=== PATIENT | female | born 1990 | race Caucasian/White ===

== ENCOUNTER 2021-11-20 07:06 | Emergency (ER) | payer BC, SELFPAY ==
[2021-11-20 07:10] VITALS: BP 117/76; PULSE 94; RESP 16; TEMP 36.7; O2SAT 96; BMI 31.1
--- NOTE | 2021-11-20 07:34 | CRLHL7_ITS ---
For Patients: As a result of the Century Cures Act, medical imaging exams and procedure reports are released immediately into your electronic medical record. You may view this report before your referring provider. If you have questions, please contact your health care provider. Indication: Left flank pain Technique: Volumetric multidetector CT images of the abdomen and pelvis were without the administration of intravenous contrast. Comparison: CT abdomen and pelvis January 14, 2021 Findings: The lung bases are clear. The liver is normal in attenuation without intrahepatic biliary ductal dilatation. There is layering debris within the gallbladder lumen. There is no significant common biliary ductal dilatation or abrupt cut off. The spleen is normal in attenuation and size. 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 The pancreas is normal in attenuation without significant atrophy. The adrenal glands are unremarkable. There is moderate left perinephric stranding with thickening of the right-sided collecting system and urothelium. There is a nonobstructive calculus in the inferior right collecting system. There is no evidence of distal obstructive calculus. There is mild to moderate stool seen throughout the colon. The appendix is unremarkable. There is no significant mesenteric, retroperitoneal, or pelvic sidewall lymph nodes. The aorta is nonaneurysmal. There is no significant atherosclerotic disease appreciated. The solid pelvic viscera are grossly unremarkable. There is no free fluid or free air. The anterior abdominal wall is intact without significant hernias. The lumbar vertebral body heights are grossly maintained with mild multilevel degenerative disc disease. There is no significant spondylolisthesis or displaced fracture. There is moderate facet arthrosis. Impression: Nonspecific right-sided perinephric stranding and questionable thickening of the urothelium which may represent underlying pyelonephritis changes. Nonobstructive calculi are seen within the collecting system. Correlate with history of clinical symptoms and urinalysis. No evidence of left-sided obstructive uropathy. No other acute intra-abdominal abnormality is appreciated. Moderate stool seen throughout the colon Please note that all CT scans at this facility use dose modulation, iterative reconstruction, and/or weight-based dosing when appropriate to reduce radiation dose to as low as reasonably achievable. Dictated by Savage To MD @ 11/20/2021 8:59:40 AM (Electronically Signed)
--- NOTE | 2021-11-20 07:35 | ED_ITS ---
HPI - General Adult General Time Seen by Provider: 07:34 Date Seen: 11/20/21 Chief complaint: Flank Pain Stated complaint: pain on left side to lower back Time Seen by Provider: 11/20/21 07:11 Source: patient History of Present Illness HPI narrative: 31-year-old female who comes in with about a week of left-sided flank pain. Pain is constant, better sitting, worse with movement. She has had some loose stools with this. Occasional nausea. Pain does radiate down into the left lower quadrant. She has taken Tylenol for this. Was seen in the clinic and ultrasound is scheduled but pain has gotten worse and so patient came emergency department. She denies fever chills. No hematuria or dysuria. Related Data Home Medications Medication Instructions Recorded Confirmed bupropion HCl 150 mg tablet,12 hr mg PO 11/20/21 sustained-release citalopram 20 mg tablet mg 11/20/21 hydroxyzine HCl 25 mg tablet mg 11/20/21 Allergies Allergy/AdvReac Type Severity Reaction Status Date / Time acetaminophen [From Vicodin] Allergy Mild anxious Verified 11/20/21 07:21 cefaclor [From Ceclor] Allergy Mild Rash Verified 11/20/21 07:21 hydrocodone [From Vicodin] Allergy Mild anxious Verified 11/20/21 07:21 Review of Systems Status of ROS: Reports: 10 or more systems reviewed and unremarkable except as noted in History and below Exam Const: Vital Signs, click to edit/add: Vital Signs - 24 hr 11/20/21 07:10 Temperature 98.1 F Pulse Rate [Right Radial] 94 Respiratory Rate 16 Blood Pressure [Ri ght Upper Arm] 117/76 Pulse Oximetry 96 Documenting provider has reviewed patient's vital signs: yes Common normals: no apparent distress, oriented x3, alert and well nourished HENMT: Common normals: normocephalic, head/scalp atraumatic, external ears normal and external nose normal Head and scalp: normocephalic and atraumatic Nose: external nose normal External ear: external ears normal Eye: Common normals: PERRL and conjunctivae normal Conjunctiva: conjunctiva(e) normal Pupil: PERRL Neck & C-Spine: Common normals: full ROM, no lymphadenopathy and supple Chest: Common normals: palpation of chest normal Resp: Common normals: normal respiratory effort and clear to auscultation bilaterally Auscultation: clear to auscultation bilaterally Cardio: Common normals: regular rate, regular rhythm and no murmurs Rate: regular rate Rhythm: regular rhythm GI: Common normals: Normal to inspection, nondistended, normoactive bowel sounds present, soft to palpation and non-tender Palpation: soft : Bladder/kidney exam: CVA tenderness on the left Back & Pelvis: Common normals: thoracic and lumbar spine normal to inspection General back: CVA tenderness Extremity: Common normals: normal to inspection, full ROM and no pedal edema Neuro: Common normals: oriented x3, CN's II-XII intact bilaterally and no focal motor deficits Sensorium/orientation: alert Psych: Common normals: mental status grossly normal Skin: Common normals: no rashes or lesions noted General skin exam: no rashes or lesions noted Course Reevaluation(s) Reevaluation #1: Signout to oncoming provider at change of shift Time: 08:00 Vital Signs Vital signs: Initial Vital Signs Temperature 98.1 F 11/20/21 07:10 Temperature Source Temporal Artery Scan 11/20/21 07:10 Pulse Rate 94 11/20/21 07:10 Pulse Rhythm 11/20/21 07:10 Pulse Strength 0+ Absent 11/20/21 07:10 Respiratory Rate 16 11/20/21 07:10 Blood Pressure 117/76 11/20/21 07:10 Blood Pressure Mean 89 11/20/21 07:10 Blood Pressure Position Sitting 11/20/21 07:10 Pulse Oximetry 96 11/20/21 07:10 Oxygen Delivery Method 11/20/21 07:10 Vital Signs Temperature 98.1 F 11/20/21 07:10 Pulse Rate 94 11/20/21 07:10 Respiratory Rate 16 11/20/21 07:10 Blood Pressure 117/76 11/20/21 07:10 Pulse Oximetry 96 11/20/21 07:10 Temperature 98.1 F 11/20/21 07:10 Pulse Rate 94 11/20/21 07:10 Respiratory Rate 16 11/20/21 07:10 Blood Pressure 117/76 11/20/21 07:10 Pulse Oximetry 96 11/20/21 07:10 Medical Decision Making MDM Narrative Medical decision making narrative: differential diagnosis includes but not limited to pyelonephritis, perinephric hematoma, retroperitoneal abscess or hematoma, musculoskeletal pain, colitis, diverticulitis, ureteral stone. Patient presents with about a week of left flank pain. She has a history of kidney stones, not sure if this feels similar. She has left CVA tenderness. Pain does radiate in the left lower qu adrant. Symptoms are most consistent with ureteral stone. Due to recent weight loss surgery, patient cannot take nonsteroidals. Dilaudid IV is ordered. CT scan and labs are ordered. Sign out to oncoming provider at change of shift. Medical Records Medical records reviewed: Yes I reviewed the patient's medical records Lab Data Lab results reviewed: Yes I reviewed the patient's lab results Discharge Plan Discharge Clinical Impression: Acute left flank pain Prescriptions: No Action bupropion HCl 150 mg tablet sustained-release 12 hr PO 0RF Label Comments: TAKE ONE TABLET BY MOUTH TWICE DAILY citalopram 20 mg tablet 0RF Label Comments: TAKE ONE TABLET BY MOUTH EVERY DAY IN THE MORNING. hydroxyzine HCl 25 mg tablet 0RF Follow Up/Referrals: Stephon Arellano MD [Primary Care Provider] -
[2021-11-20 07:49] LABS: Appearance Urine Slightly Cloudy (Clear); Bilirubin Urine Negative (Negative); Blood Urine 3+ (Negative); Color Urine Yellow (Yellow); Glucose Urine Negative (Negative); Ketones Urine Negative (Negative); Leukocyte Esterase Urine 1+ (Negative); Nitrite Urine Negative (Negative); Protein Urine 1+ (Negative)
[2021-11-20 07:52] LABS: Basophils Percent Auto 0.1 % (0.0-3.0); Eosinophils Percent Auto 0.3 % (0.0-7.0); Hematocrit 40.3 % (33.0-51.0); Hemoglobin* 13.2 gm/dL (12.0-16.0); Immature Granulocytes Abs Auto 0.12 K/uL (0.00-0.30); Mean Corpuscular HGB Conc 33 gm/dL (32-36); Mean Corpuscular Hemoglobin 32 pg (26-34); Mean Corpuscular Volume 97 fL (80-100); Monocytes Percent Auto 10.6 % (0.0-11.0); Neutrophils Percent Auto 77.2 % (42.0-72.0); Platelet Count* 481 K/uL (140-440); RDW Coefficient of Variation % 13.4 % (11.5-15.5); Red Blood Count 4.16 m/uL (4.00-5.20); White Blood Count* 14.35 K/uL (4.50-11.00)
[2021-11-20 07:58] LABS: Slide Review Reflex No
[2021-11-20 07:58] LABS: Bacteria Urine Moderate; Squamous Epithelial Cell Urine Moderate (None-Few)
[2021-11-20 07:59] LABS: Mucus Urine Few
[2021-11-20 08:14] LABS: Chloride* 106 mmol/L (96-114); Potassium* 3.2 mmol/L (3.6-5.1); Sodium* 138 mmol/L (135-149)
[2021-11-20] MEDS: HYDROmorphone 0.5 mg/0.5 ml inj IVP (08:16)
[2021-11-20] MEDS: ONDANSETRON 2 MG/ML inj 4 MG IVP (08:16)
[2021-11-20 08:17] LABS: Blood Urea Nitrogen* 12 mg/dL (5-24); Carbon Dioxide* 28 mmol/L (20-32); Creatinine* 0.7 mg/dL (0.5-1.5); Est. Creatinine Clearance* 102.86; Estimated Glomerular Filt Rate 117.04
[2021-11-20 08:18] LABS: Calcium* 8.6 mg/dL (8.4-10.6); Glucose* 99 mg/dL (60-115)
[2021-11-20 08:32] VITALS: PULSE 82; RESP 16; O2SAT 98
[2021-11-20] MEDS: PIPERACILLIN/TAZOBACTAM 3.375 GM in 0.9 % SODIUM CHLORIDE Mini-bag 100 ML IVPB (09:32)
[2021-11-20 10:35] VITALS: PULSE 67; RESP 16; O2SAT 96
== END 2021-11-20 10:37 | disposition home or self-care (01) ==
PROVIDERS: Family Medicine; Emergency Provider Family Medicine; PCP Family Medicine
DX: R10.32 Left lower quadrant pain (principal)
CPT/HCPCS: 36415; 74176; 80048; 81001; 85025; 87086; 87186; 96365; 96375; 99284; 99285; J1170; J2405; J2543

== ENCOUNTER 2022-01-22 10:58 | Emergency (ER) | payer BC, SELFPAY ==
[2022-01-22 11:39] VITALS: BP 99/68; PULSE 88; RESP 18; TEMP 37.3; O2SAT 98; BMI 30.6
--- NOTE | 2022-01-22 11:42 | ED_ITS ---
HPI - Abdominal Pain General Chief Complaint: Flank Pain Stated Complaint: Pain on both sides Time Seen by Provider: 01/22/22 11:31 History of Present Illness HPI narrative: 31-year-old woman presenting to the emergency department with complaint bilateral low back/flank area pain. She is having some frequency as well. No hematuria is noted. Does have an underlying history of nephrolithiasis, cholelithiasis and urinary tract infections. Seen with flank pain in early November here at this department. CT imaging showed nonobstructive uropathy, by my review a large stone in the right lower collecting system another much smaller appears in the upper collecting system also on the right, and what appeared to be perinephric stranding. Was treated for a urinary tract infection with Bactrim. Urine culture ultimately grew nothing of significance. 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 Accompanied by nausea. She has not been vomiting. Has been taking Tylenol for the pain which admittedly does help somewhat. Does not take NSAIDs given history of gastric bypass. She has not had a fever. Pain is described as a deep an annoying ache. She has a hand initially at the low abdomen on the right but it sounds as though more of her discomfort is actually concentrated on the left side. Related Data Home Medications Medication Instructions Recorded Confirmed bupropion HCl 150 mg tablet,12 hr mg PO 11/20/21 sustained-release citalopram 20 mg tablet mg 11/20/21 hydroxyzine HCl 25 mg tablet mg 11/20/21 Previous Rx's Medication Instructions Recorded sulfamethoxazole 800 1 tab PO BID 7 days #14 tabs 11/20/21 mg-trimethoprim 160 mg tablet Allergies Allergy/AdvReac Type Severity Reaction Status Date / Time acetaminophen [From Vicodin] Allergy Mild anxious Verified 01/22/22 11:44 cefaclor [From Ceclor] Allergy Mild Rash Verified 01/22/22 11:44 hydrocodone [From Vicodin] Allergy Mild anxious Verified 01/22/22 11:44 Review of Systems Status of ROS Reports: 10 or more systems reviewed and unremarkable except as noted in History and below [facility] Medical History Anxiety Flank pain Gall bladder stones Gastritis Gout Heart palpitations Postprandial abdominal pain in right upper quadrant SVT (supraventricular tachycardia) Urolithiasis Social History Smoking Status: Former smoker What tobacco products do you use: cigarettes Smoking quit date/years: <= 15 years ago Second hand tobacco smoke exposure: Yes How often do you have a drink containing alcohol: monthly or less How often do you have six or more drinks on one occasion: Less than monthly AUDIT-C Alcohol total score: 2 Non-prescribed substance use: denies use service: No Exam Narrative: Exam Narrative: Pleasant. Seems mildly uncomfortable. Transitions without significant difficulty. Right hand resting on her right side abdomen. We will extremities are difficulty. Cranial nerves 2-12 intact Skin is warm and dry. No edema well perfused peripherally. She has large shahid tattoo on right side of her neck. Lungs are clear. Breathing easily. Abdomen is soft overweight and with bilateral flank pain to percussion more sites on the left than the right. Abdomen is soft. No masses appreciated. Not particularly tender to palpation though maybe a little bit of tenderness in the low left mid abdomen. Normoactive bowel sounds Const: Vital Signs, click to edit/add: Vital Signs - 24 hr 01/22/22 11:39 Temperature 99.2 F Pulse Rate [Right Pulse Oximeter] 88 Respiratory Rate 18 Blood Pressure [Ri ght Upper Arm] 99/68 Pulse Oximetry 98 Oxygen Delivery Me thod Room Air Documenting provider has reviewed patient's vital signs: yes Course Course Hospital Course: She would like nothing for pain beyond acetaminophen. This is given along with Zofran. Pending urinalysis to proceed further. Vital Signs Vital signs: Initial Vital Signs Temperature 99.2 F 01/22/22 11:39 Temperature Source Temporal Artery Scan 01/22/22 11:39 Pulse Rate 88 01/22/22 11:39 Pulse Rhythm 01/22/22 11:39 Respiratory Rate 18 01/22/22 11:39 Blood Pressure 99/68 01/22/22 11:39 Blood Pressure Mean 78 01/22/22 11:39 Blood Pressure Position Sitting 01/22/22 11:39 Pulse Oximetry 98 01/22/22 11:39 Oxygen Delivery Method 01/22/22 11:39 Vital Signs Temperature 99.2 F 01/22/22 11:39 Pulse Rate 88 01/22/22 11:39 Respiratory Rate 18 01/22/22 11:39 Blood Pressure 99/68 01/22/22 11:39 Pulse Oximetry 98 01/22/22 11:39 Oxygen Delivery Method 01/22/22 11:39 Temperature 99.2 F 01/22/22 11:39 Pulse Rate 88 01/22/22 11:39 Respiratory Rate 18 01/22/22 11:39 Blood Pressure 99/68 01/22/22 11:39 Pulse Oximetry 98 01/22/22 11:39 Oxygen Delivery Method 01/22/22 11:39 MDM - Abdominal Pain MDM Narrative Medical decision making narrative: Will assess 1st for urinary tract infection. Given the size of what would be potentially a surgical problem given the size of the right side stone partic ularly if associated with urinary tract infection, perhaps a KUB would be useful. I did review prior CT imaging. See above. Again though discomfort seems to be more left-sided While not excluded, I do not see evidence of a stone on kub. UA is positive -- consistent with infection Medical Records Attestation: I reviewed the patient's medical records. Lab Data Labs: Lab Results 01/22/22 Range/Units 11:56 Urine Color Yellow (Yellow) Urine Appearance Clear (Clear) Urine pH 6.0 (5.0-8.5) Ur Specific [place] 1.020 (1.000-1.030) Urine Protein 2+ A (Negative) Urine Glucose (UA) Negative (Negative) Urine Ketones Negative (Negative) Urine Blood 1+ A (Negative) Urine Nitrite Negative (Negative) Urine Bilirubin Negative (Negative) Urine Urobilinogen 1.0 (0.2-1.0) Ur Leukocyte Esterase 1+ A (Negative) Urine RBC 0-2 (0-2) Urine WBC 50-100 A (0-5) Ur Squamous Epith Cells Few (None-Few) Urine Bacteria Few A (None) Discharge Plan Discharge Clinical Impression: UTI (urinary tract infection) Patient Disposition: Home w/ Parent or Adult Condition: Stable Additional Instructions: Stay hydrated with unsweetened/unsugared liquids. ideally water. Return for marked increase in pain, pain lasting more than 4-5 days, associated fever, repeated vomiting Urine culture will be pending here. I will call you if radiology over-read requires conversation. Cephalexin from [facility] Prescriptions: No Action bupropion HCl 150 mg tablet sustained-release 12 hr PO Label Comments: TAKE ONE TABLET BY MOUTH TWICE DAILY citalopram 20 mg tablet Label Comments: TAKE ONE TABLET BY MOUTH EVERY DAY IN THE MORNING. hydroxyzine HCl 25 mg tablet sulfamethoxazole-trimethoprim 800-160 mg tablet 1 tab PO BID 7 Days Qty: 14 0RF Follow Up/Referrals: Stephon Arellano MD [Primary Care Provider] - Stand Alone Forms: [employer] Info Instructions
[2022-01-22] MEDS: ONDANSETRON ODT 4 MG TAB PO (12:09)
[2022-01-22] MEDS: ACETAMINOPHEN 500 MG TABLET 1000 MG PO (12:09)
--- NOTE | 2022-01-22 12:09 | CRLHL7_ITS ---
For Patients: As a result of the Century Cures Act, medical imaging exams and procedure reports are released immediately into your electronic medical record. You may view this report before your referring provider. If you have questions, please contact your health care provider. INDICATION: Right sided stone location TECHNIQUE: Abdomen/Pelvis radiograph 2 views COMPARISON: CT 11/20/2021 FINDINGS: Bowel: The bowel gas pattern is normal without evidence of bowel obstruction. The epigastrium is excluded and cannot be evaluated. Soft tissue: No evidence of pneumoperitoneum present. Several left pelvic phleboliths are noted without interval change. The 6 mm right renal stone seen on prior exam is not visualized by radiography. Evaluation of renal stones is limited by overlying bowel gas. Bone: Unremarkable for age. IMPRESSION: 1. The 6 mm right renal stone seen on prior exam is not visualized by radiography. Dictated by Doroteo Mejias MD @ 01/22/2022 1:12:24 PM Dictated by: Doroteo Mejias MD @ 01/22/2022 13:12:29 (Electronically Signed)
[2022-01-22 12:22] LABS: Appearance Urine Clear (Clear); Bilirubin Urine Negative (Negative); Blood Urine 1+ (Negative); Color Urine Yellow (Yellow); Glucose Urine Negative (Negative); Ketones Urine Negative (Negative); Leukocyte Esterase Urine 1+ (Negative); Nitrite Urine Negative (Negative); Protein Urine 2+ (Negative)
[2022-01-22 12:44] LABS: Bacteria Urine Few; RBC Urine 0-2 (0-2); Squamous Epithelial Cell Urine Few (None-Few); WBC Urine 50-100 (0-5)
== END 2022-01-22 13:23 | disposition home or self-care (01) ==
PROVIDERS: Emergency Provider Family Medicine; PCP Family Medicine
DX: N39.0 Urinary tract infection, site not specified (principal); B96.20 Unspecified Escherichia coli [E. coli] as the cause of diseases classified elsewhere
CPT/HCPCS: 74018; 81001; 87086; 87186; 99283; A9270

== ENCOUNTER 2022-09-25 11:23 | Emergency (ER) | payer SELFPAY ==
[2022-09-25 12:06] VITALS: BP 104/69; PULSE 59; RESP 18; TEMP 15; O2SAT 99; BMI 28.8
--- NOTE | 2022-09-25 12:14 | ED_ITS ---
HPI - Wound/Laceration General Time Seen by Provider: 12:14 Date Seen: 09/25/22 Chief Complaint: Laceration/Wound Stated Complaint: LT index finger - WC Time Seen by Provider: 09/25/22 12:11 Source: patient, RN notes reviewed and old records reviewed Mode of arrival: ambulatory Limitations: no limitations History of Present Illness HPI narrative: Patient is a 32-year-old female with unknown tetanus who comes to the emergency room for evaluation regarding laceration to the left index finger. 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 She is not sure she needs stitches. She is able to move her finger without difficulty. No history of diabetes or difficult to heal infections. She has not taken any medication for discomfort. Related Data Home Medications Medication Instructions Recorded Confirmed bupropion HCl 150 mg tablet,12 hr mg PO 11/20/21 sustained-release citalopram 20 mg tablet mg 11/20/21 hydroxyzine HCl 25 mg tablet mg 11/20/21 Previous Rx's Medication Instructions Recorded sulfamethoxazole 800 1 tab PO BID 7 days #14 tabs 11/20/21 mg-trimethoprim 160 mg tablet Allergies Allergy/AdvReac Type Severity Reaction Status Date / Time cefaclor [From Ceclor] Allergy Mild Rash Verified 01/22/22 11:44 hydrocodone [From Vicodin] Allergy Mild anxious Verified 01/22/22 11:44 Review of Systems Status of ROS: Reports: 6 or more systems reviewed and unremarkable except as noted in History and below [facility] Medical History Gall bladder stones ?K80.20 - Calculus of gallbladder without cholecystitis without obstruction (ICD-10) Urolithiasis ?N20.9 - Urinary calculus, unspecified (ICD-10) Gastritis ?K29.70 - Gastritis, unspecified, without bleeding (ICD-10) Flank pain ?R10.9 - Unspecified abdominal pain (ICD-10) Gout ?M10.9 - Gout, unspecified (ICD-10) Postprandial abdominal pain in right upper quadrant ?R10.11 - Right upper quadrant pain (ICD-10) Anxiety ?F41.9 - Anxiety disorder, unspecified (ICD-10) Heart palpitations ?R00.2 - Palpitations (ICD-10) SVT (supraventricular tachycardia) ?I47.1 - Supraventricular tachycardia (ICD-10) Social History (Updated 01/29/22 @ 10:48 by Sebastien Moore MD) Smoking Status: Former smoker What tobacco products do you use: cigarettes Smoking quit date/years: <= 15 years ago Second hand tobacco smoke exposure: Yes How often do you have a drink containing alcohol: monthly or less How often do you have six or more drinks on one occasion: Less than monthly AUDIT-C Alcohol total score: 2 Non-prescribed substance use: denies use service: No Exam Narrative: Exam Narrative: Alert and oriented. Examination of the left index finger shows a 2 0.3 cm superficial laceration through the dermis and epidermis. Located on the ventral lateral surface of the distal phalanx 2nd finger. I do not note that it compromises subcutaneous tissue. No foreign bodies are noted. We will soak the finger and then applied Dermabond. Const: Vital Signs, click to edit/add: Vital Signs - 24 hr 09/25/22 12:06 Temperature 59 F L Pulse Rate [Right Pulse Oximeter] 59 L Respiratory Rate 18 Blood Pressure [Ri ght Upper Arm] 104/69 Pulse Oximetry 99 Oxygen Delivery Me thod Room Air Documenting provider has reviewed patient's vital signs: yes Course Course Hospital Course: Wound is soaked in Hibiclens. No foreign bodies are noted. Dermabond placed in a double layer with good wound closure. Patient tolerated procedure well. Vital Signs Vital signs: Initial Vital Signs Temperature 59 F L 09/25/22 12:06 Temperature Source Temporal Artery Scan 09/25/22 12:06 Pulse Rate 59 L 09/25/22 12:06 Respiratory Rate 18 09/25/22 12:06 Blood Pressure 104/69 09/25/22 12:06 Blood Pressure Mean 80 09/25/22 12:06 Blood Pressure Position Sitting 09/25/22 12:06 Pulse Oximetry 99 09/25/22 12:06 Oxygen Delivery Method Room Air 09/25/22 12:06 Vital Signs Temperature 59 F L 09/25/22 12:06 Pulse Rate 59 L 09/25/22 12:06 Respiratory Rate 18 09/25/22 12:06 Blood Pressure 104/69 09/25/22 12:06 Pulse Oximetry 99 09/25/22 12:06 Oxygen Delivery Method Room Air 09/25/22 12:06 Temperature 59 F L 09/25/22 12:06 Pulse Rate 59 L 09/25/22 12:06 Respiratory Rate 18 09/25/22 12:06 Blood Pressure 104/69 09/25/22 12:06 Pulse Oximetry 99 09/25/22 12:06 Oxygen Delivery Method Room Air 09/25/22 12:06 MDM - Wound/Laceration MDM Narrative Medical decision making narrative: 1. Finger laceration repair-Dermabond use. Recommend monitoring for signs and symptoms of infection and seeking medical attention for fever, increasing redness. Tylenol or ibuprofen may be used for discomfort. Tetanus is confirmed as up-to-date. 2. Disposition-home at this time. Return as needed. Note given for off work today. Medical Records Attestation: I reviewed the patient's medical records. Discharge Plan Discharge Clinical Impression: Laceration Patient Disposition: Home, Self-Care Condition: Improved Additional Instructions: Monitor for infection. Seek medical attention for fever, increasing redness, swelling. Tylenol or ibuprofen may be used for discomfort. Prescriptions: No Action bupropion HCl 150 mg tablet sustained-release 12 hr PO Patient Comments: TAKE ONE TABLET BY MOUTH TWICE DAILY citalopram 20 mg tablet Patient Comments: TAKE ONE TABLET BY MOUTH EVERY DAY IN THE MORNING. hydroxyzine HCl 25 mg tablet sulfamethoxazole-trimethoprim 800-160 mg tablet 1 tab PO BID 7 Days Qty: 14 0RF Follow Up/Referrals: Stephon Arellano MD [Primary Care Provider] - Stand Alone Forms[facility]
== END 2022-09-25 12:55 | disposition home or self-care (01) ==
PROVIDERS: Emergency Provider Family Medicine; PCP Family Medicine
DX: S61.211A Laceration without foreign body of left index finger without damage to nail, initial encounter (principal); W27.2XXA Contact with scissors, initial encounter
CPT/HCPCS: 12001; 99282

== ENCOUNTER 2023-01-20 18:18 | Emergency (ER) | payer BC, SELFPAY ==
[2023-01-20 18:38] VITALS: BP 124/75; PULSE 91; RESP 16; TEMP 36.3; O2SAT 99; BMI 28.3
--- NOTE | 2023-01-20 19:45 | CRLHL7_ITS ---
For Patients: As a result of the Century Cures Act, medical imaging exams and procedure reports are released immediately into your electronic medical record. You may view this report before your referring provider. If you have questions, please contact your health care provider. INDICATION: Right lower quadrant pain. TECHNIQUE: CT abdomen and pelvis acquired with 81 cc Isovue 370 IV contrast. COMPARISON: 11/20/2021. FINDINGS: Lower chest: Right basilar calcified granulomas with adjacent clustered nodularity, unchanged since 01/14/2021. Liver: Unremarkable. Normal in size and attenuation. No suspicious masses. Gallbladder and bile ducts: Dependent hyperdensity in the gallbladder lumen, representing layering sludge and/or stones. No inflammation. No biliary ductal dilatation. Spleen: Unremarkable. Normal in size. No masses. Adrenal glands: Unremarkable. No nodules. Pancreas: Unremarkable. No mass or inflammation. Kidneys: Nonobstructive 5 mm calculus in the right inferior pole. No hydronephrosis. GI tract: Postsurgical changes of gastric bypass. No evidence of obstruction. Large colonic stool load. Appendix is not well visualized, however there is no evidence of right lower quadrant inflammatory stranding. Lymph nodes: No lymphadenopathy. Vasculature: Unremarkable. Omentum/Peritoneum/Abdominal Wall: Unremarkable. No free air or significant free fluid. Pelvis: Unremarkable. Bones: Unremarkable for age. IMPRESSION: 1. No acute abdominal or pelvic abnormality. 2. Right nonobstructive nephrolithiasis. 3. Cholelithiasis. 4. Large colonic stool load. Please note that all CT scans at this facility use dose modulation, iterative reconstruction, and/or weight-based dosing when appropriate to reduce radiation dose to as low as reasonably achievable. Dictated by Otis Winchester MD @ 01/20/2023 10:20:21 PM (Electronically Signed)
--- NOTE | 2023-01-20 19:46 | ED_ITS ---
HPI - General Adult General Date Seen: 01/20/23 Chief complaint: Abdominal Pain Stated complaint: Back/stomach numb, R side in pain Time Seen by Provider: 01/20/23 19:37 Source: patient Mode of arrival: ambulatory Limitations: no limitations History of Present Illness HPI narrative: Patient is a 32-year-old female who comes in with abdominal pain. This started in her right mid back and radiates around to the front. She has had no fevers or chills. No hematuria. She does have a history of kidney stones. No dysuria, urgency, frequency. She has some constipation but no diarrhea. Pain began yesterday after eating a pork chop. She has had a previous gastric bypass. She still has her appendix and gallbladder. Related Data Home Medications Medication Instructions Recorded Confirmed cyclobenzaprine 5 mg tablet 5 mg PO 3XD PRN 12/08/22 12/08/22 prednisone 10 mg tablet 10 mg PO BID 12/08/22 12/08/22 Allergies Allergy/AdvReac Type Severity Reaction Status Date / Time cefaclor [From Ceclor] Allergy Mild Rash Verified 12/08/22 16:05 hydrocodone [From Vicodin] Allergy Mild anxious Verified 12/08/22 16:05 Review of Systems Narrative: Review of systems is outlined above otherwise noted to be negative. [facility] Medical History Gall bladder stones ?K80.20 - Calculus of gallbladder without cholecystitis without obstruction (ICD-10) Urolithiasis ?N20.9 - Urinary calculus, unspecified (ICD-10) Gastritis ?K29.70 - Gastritis, unspecified, without bleeding (ICD-10) Flank pain ?R10.9 - Unspecified abdominal pain (ICD-10) Gout ?M10.9 - Gout, unspecified (ICD-10) Postprandial abdominal pain in right upper quadrant ?R10.11 - Right upper quadrant pain (ICD-10) Anxiety ?F41.9 - Anxiety disorder, unspecified (ICD-10) Heart palpitations ?R00.2 - Palpitations (ICD-10) SVT (supraventricular tachycardia) ?I47.1 - Supraventricular tachycardia (ICD-10) Social History (Updated 01/29/22 @ 10:48 by Sebastien Moore MD) Smoking Status: Former smoker What tobacco products do you use: cigarettes Smoking quit date/years: <= 15 years ago Second hand tobacco smoke exposure: Yes How often do you have a drink containing alcohol: monthly or less How often do you have six or more drinks on one occasion: Less than monthly AUDIT-C Alcohol total score: 2 Non-prescribed substance use: denies use service: No Exam Narrative: Exam Narrative: Vitals noted. HEENT: Conjunctiva clear. Tympanic membranes are pearly white bilaterally. Posterior pharynx is clear without erythema or exudate. Neck is supple without adenopathy. Lungs: Clear to auscultation in all medrano. No wheezes, rales, rhonchi. Heart: Regular rate and rhythm without murmur. Abdomen: She has some mild tenderness in the right upper and right lower quadrant. No guarding, rigidity, rebound. Bowel sounds are normal. No palpable mass. Extremities: No cyanosis or edema. Good distal pulses. Skin: No abnormalities noted of the exposed skin. Neurologic: Awake, alert, fully oriented. Neurologic exam is nonfocal. Const: Vital Signs, click to edit/add: Vital Signs - 24 hr 01/20/23 18:38 01/20/23 20:57 Temperature 97.3 F L Pulse Rate [Right Pulse Oximeter] 91 73 Respiratory Rate 16 Blood Pressure [Ri ght Upper Arm] 124/75 117/75 Pulse Oximetry 99 98 Oxygen Delivery Me thod Room Air Room Air Course Course Hospital Course: Patient was seen and examined. Labs and a CT of her abdomen and pelvis are ordered. She denies a need for pain medication. Reevaluation(s) Reevaluation #1: CBC, BMP, LFTs, lipase are all normal. Urinalysis is normal. CT of the abdomen and pelvis shows gallstones but no sign of acute cholecystitis. Appendix is normal. She has a large amount of colonic stool. No point of obstruction. Vital Signs Vital signs: Initial Vital Signs Temperature 97.3 F L 01/20/23 18:38 Temperature Source Temporal Artery Scan 01/20/23 18:38 Pulse Rate 91 01/20/23 18:38 Pulse Rhythm Regular 01/20/23 18:38 Respiratory Rate 16 01/20/23 18:38 Blood Pressure 124/75 01/20/23 18:38 Blood Pressure Mean 91 01/20/23 18:38 Blood Pressure Position Sitting 01/20/23 18:38 Pulse Oximetry 99 01/20/23 18:38 Oxygen Delivery Method Room Air 01/20/23 18:38 Vital Signs Temperature 97.3 F L 01/20/23 18:38 Pulse Rate 91 01/20/23 18:38 Respiratory Rate 16 01/20/23 18:38 Blood Pressure 124/75 01/20/23 18:38 Pulse Oximetry 99 01/20/23 18:38 Oxygen Delivery Method Room Air 01/20/23 18:38 Temperature 97.3 F L 01/20/23 18:38 Pulse Rate 73 01/20/23 20:57 Respiratory Rate 16 01/20/23 18:38 Blood Pressure 117/75 01/20/23 20:57 Pulse Oximetry 98 01/20/23 20:57 Oxygen Delivery Method Room Air 01/20/23 20:57 Medical Decision Making MDM Narrative Medical decision making narrative: I suspect her pain is related to her gallbladder. We discussed following a fat- free diet until she has a chance to have a right upper quadrant ultrasound and surgical consult done. She denies a need for pain medication. Lab Data Labs: Lab Results 01/20/23 01/20/23 Range/Units 19:50 19:55 WBC 6.72 (4.50-11.00) K/uL RBC 3.75 L (4.00-5.20) m/uL Hgb 12.0 (12.0-16.0) gm/dL Hct 37.2 (33.0-51.0) % MCV 99 (80-100) fL MCH 32 (26-34) pg MCHC 32 (32-36) gm/dL RDW Coeff of Colleen 12.4 (11.5-15.5) % Plt Count 288 (140-440) K/uL Neut % (Auto) 57.0 (42.0-72.0) % Lymph % (Auto) 33.2 (20-44) % [place] % (Auto) 8.5 (0.0-11.0) % Eos % (Auto) 0.9 (0.0-7.0) % Baso % (Auto) 0.3 (0.0-3.0) % Neut # (Auto) 3.83 (1.7-7.0) K/uL Lymph # (Auto) 2.23 (0.90-2.90) K/uL [place] # (Auto) 0.60 (0.00-0.90) K/UL Eos # (Auto) 0.06 (0.00-0.50) K/uL Baso # (Auto) 0.02 (0.00-0.30) K/uL Abs Immat Gran (auto) 0.01 (0.00-0.30) K/uL Imm/Tot Granulo (auto) 0.1 % Sodium 137 (135-149) mmol/L Potassium 4.1 (3.6-5.1) mmol/L Chloride 102 (96-114) mmol/L Carbon Dioxide 31 (20-32) mmol/L Anion Gap 4 L (7-15) mEq/L BUN 19 (5-24) mg/dL Creatinine 0.8 (0.5-1.5) mg/dL Estimated Creat Clear 85.56 Estimated GFR 99 ml/min Glucose 65 (60-115) mg/dL Calcium 8.9 (8.4-10.6) mg/dL Total Bilirubin 0.5 (0.1-1.5) mg/dL Direct Bilirubin 0.0 (0.0-0.5) mg/dL AST 24 (12-35) U/L ALT 23 (4-35) U/L Alkaline Phosphatase 46 (40-150) U/L Total Protein 6.5 (6.0-8.3) g/dL Albumin 3.9 (3.3-5.0) g/dL Lipase 45 (23-300) U/L Urine Color Yellow (Yellow) Urine Appearance Slightly Cloudy A (Clear) Urine pH 6.0 (5.0-8.5) Ur Specific [place] 1.020 (1.000-1.030) Urine Protein Negative (Negative) Urine Glucose (UA) Negative (Negative) Urine Ketones Negative (Negative) Urine Blood Negative (Negative) Urine Nitrite Negative (Negative) Urine Bilirubin Negative (Negative) Urine Urobilinogen 1.0 (0.2-1.0) Ur Leukocyte Esterase Negative (Negative) Urine RBC 0-2 (0-2) Urine WBC 0-2 (0-5) Ur Squamous Epith Cells Few (None-Few) Urine Bacteria None (None) Discharge Plan Discharge Clinical Impression: Cholelithiasis, Biliary colic Patient Disposition: Home, Self-Care Condition: Improved Additional Instructions: Follow a fat-free diet. Use Tylenol for pain. Take MiraLax daily to help with the constipation issue. Follow-up with Dr. Arellano to discuss the right upper quadrant ultrasound and surgical referral. Return to the emergency department for refractory pain. Prescriptions: No Action cyclobenzaprine 5 mg tablet 5 mg PO 3XD PRN prednisone 10 mg tablet 10 mg PO BID Follow Up/Referrals: Stephon Arellano MD [Primary Care Provider] - Stand Alone Forms: [employer] Info Instructions
[2023-01-20 19:59] LABS: Appearance Urine Slightly Cloudy (Clear); Bilirubin Urine Negative (Negative); Blood Urine Negative (Negative); Color Urine Yellow (Yellow); Glucose Urine Negative (Negative); Ketones Urine Negative (Negative); Leukocyte Esterase Urine Negative (Negative); Nitrite Urine Negative (Negative); Protein Urine Negative (Negative)
[2023-01-20 20:04] LABS: Basophils Absolute Auto 0.02 K/uL (0.00-0.30); Basophils Percent Auto 0.3 % (0.0-3.0); Eosinophils Absolute Auto 0.06 K/uL (0.00-0.50); Eosinophils Percent Auto 0.9 % (0.0-7.0); Hematocrit 37.2 % (33.0-51.0); Immature Granulocytes Abs Auto 0.01 K/uL (0.00-0.30); Immature Granulocytes Pct Auto 0.1 %; Lymphocytes Absolute Auto 2.23 K/uL (0.90-2.90); Lymphocytes Percent Auto 33.2 % (20-44); Mean Corpuscular HGB Conc 32 gm/dL (32-36); Mean Corpuscular Hemoglobin 32 pg (26-34); Mean Corpuscular Volume 99 fL (80-100); Monocytes Percent Auto 8.5 % (0.0-11.0); Neutrophils Absolute Auto 3.83 K/uL (1.7-7.0); Platelet Count* 288 K/uL (140-440); RDW Coefficient of Variation % 12.4 % (11.5-15.5); Red Blood Count 3.75 m/uL (4.00-5.20); White Blood Count* 6.72 K/uL (4.50-11.00)
[2023-01-20 20:08] LABS: Slide Review Reflex No
[2023-01-20 20:17] LABS: Albumin* 3.9 g/dL (3.3-5.0)
[2023-01-20 20:18] LABS: Chloride* 102 mmol/L (96-114); Potassium* 4.1 mmol/L (3.6-5.1); Sodium* 137 mmol/L (135-149)
[2023-01-20 20:20] LABS: Anion Gap 4 mEq/L (7-15); Carbon Dioxide* 31 mmol/L (20-32); Creatinine* 0.8 mg/dL (0.5-1.5); Est. Creatinine Clearance* 85.56; Estimated Glomerular Filt Rate 99 ml/min
[2023-01-20 20:21] LABS: Alanine Aminotransferase* 23 U/L (4-35); Alkaline Phosphatase* 46 U/L (40-150); Aspartate Amino Transferase* 24 U/L (12-35); Bilirubin Total* 0.5 mg/dL (0.1-1.5); Blood Urea Nitrogen* 19 mg/dL (5-24); Calcium* 8.9 mg/dL (8.4-10.6); Glucose* 65 mg/dL (60-115); Lipase* 45 U/L (23-300); Total Protein* 6.5 g/dL (6.0-8.3)
[2023-01-20 20:57] VITALS: BP 117/75; PULSE 73; O2SAT 98
[2023-01-21] LABS: RBC Urine 0-2 (0-2); Squamous Epithelial Cell Urine Few (None-Few); WBC Urine 0-2 (0-5)
== END 2023-01-20 22:42 | disposition home or self-care (01) ==
PROVIDERS: Emergency Provider Family Medicine; PCP Family Medicine
DX: K80.20 Calculus of gallbladder without cholecystitis without obstruction (principal); K80.50 Calculus of bile duct without cholangitis or cholecystitis without obstruction
CPT/HCPCS: 36415; 74177; 80048; 80076; 81003; 81015; 83690; 85025; 99282; 99284; 99285; Q9967

== ENCOUNTER 2023-02-12 06:01 | Day surgery (SDC) | payer BC, SELFPAY ==
[2023-02-12] VITALS (12 sets, daily range): BP systolic 103–135; BP diastolic 68–88; PULSE 57–84; RESP 10–20; TEMP 36.2–36.4; O2SAT 97–99; BMI 27.8
[2023-02-12 07:06] LABS: Ur HCG Qualitative* Negative (Negative)
[2023-02-12] MEDS: LACTATED RINGERS 1000 ML 1,000 ML 100 ML IV ×2 (07:07→09:00)
[2023-02-12] MEDS: SODIUM CHLORIDE 0.9 % (FLUSH) 10 ML SYRINGE IVF (07:07)
[2023-02-12] MEDS: CEFAZOLIN 2 GM INJ IVP (07:47)
[2023-02-12] MEDS: BUPIVACAINE 0.5% 30 ML INJECTION (07:55)
--- NOTE | 2023-02-12 09:23 | P.GSOP_ITS ---
Operative Note Pre-op diagnosis: Biliary colic Post-op diagnosis: Same Type of Procedure: Laparoscopic cholecystectomy Indications: Patient is a 32-year-old female who presented to clinic with symptomatic worked up and clinical history consistent with biliary colic. Risks and benefits of operative intervention were discussed at length with the patient. Risks included but was not limited to: Bleeding, infection, risk of damage to surrounding structures, possible need for additional procedures, possible need to convert to an open operation and postoperative complications such as pneu monia, pulmonary emboli or NC. All questions and concerns were addressed with the patient agreeing to proceed. Procedure Description: After discussing the risks and benefits of the procedure, the patient signed informed consent.? The operative site was marked and the patient was brought to the operating room and placed on the operating table in supine position.? Care was taken to pad the patient's pressure points.?? The patient was then intubated by anesthesia.?? The operative site was then prepped and draped in the usual sterile fashion.? A time-out was then performed. Entrance to the abdomen was gained via a 5 mm Visiport in the left upper quadrant. The abdomen was insufflated and briefly surveyed for signs of injury. There was none. No evidence of any anterior abdominal wall adhesions from previous surgeries. 11 mm supra umbilical port was placed as well as 2 working ports along the right costal margin. Patient was then placed in reverse Trendelenburg position with the right side up. The gallbladder fundus was grasped and retracted cephalad. A small amount of dissection was needed to free adhesions from the duodenum to the gallbladder. Care was taken during this portion of the procedure not to cause any injury to the small bowel, which was left well away from the operative field. The infundibulum was grasped, with evidence of a large stone obstructing the cystic duct. A combination of hook cautery and blunt dissection was used to carefully dissect out the cystic duct and artery until they could clearly be seen entering the gallbladder without any intervening structures. The patient's tissue was very edematous and friable, this is likely due to malnutrition from the patient's known bariatric surgery. A small bleeding vein was clipped before being transected. The gallbladder was dissected off the cystic plate to achieve the critical view. Once this was achieved the cystic duct and artery were each clipped with 2 clips proximally and 1 clip distally and transected with the scissors. A small amount of bleeding was noted on the cystic duct. A piece of Surgicel was placed to this area with pressure applied. This did adequately controlled the bleeding with excellent hemostasis at the end the procedure. The gallbladder was then taken off of the liver bed. And removed from the abdomen using an Endo-Catch bag. The gallbladder bed was again surveyed for hemostasis. The umbilical port fascia was closed with 0 Vicryl via the Ousmane Uri, 2 interrupted stitches were placed to close the defect. All other ports removed under direct visualization. The skin was closed with absorbable subcuticular suture. Instrument sponge and needle counts were correct at the end of the case. The patient was then woken and transferred to the PACU in stable condition. Findings: Large stone obstructing the cystic duct. Friable and edematous tissue surrounding the gallbladder concerning for malnutrition. Anesthesia: GETA Surgeon: Viv Truong MD Estimated blood loss (mL): 20 Specimen: Gallbladder Condition: stable Disposition: same day Date of procedure: 02/12/23
--- NOTE | 2023-02-12 09:24 | W.ANESCHARGE ---
Anesthesia Charges Start Date/Time Anesthesia Start Date: 02/12/23 Anesthesia Start Time: 07:36 Stop Date/Time Anesthesia Stop Date: 02/12/23 Anesthesia Stop Time: 09:25
[2023-02-12] MEDS: HYDROmorphone 0.5 mg/0.5 ml inj IVP (09:40)
[2023-02-12] MEDS: ACETAMINOPHEN 325 MG TABLET 650 MG PO (11:02)
--- NOTE | 2023-02-12 11:02 | W.ANESCHARGE ---
Anesthesia Charges Start Date/Time Anesthesia Start Date: 02/12/23 Anesthesia Start Time: 07:36 Stop Date/Time Anesthesia Stop Date: 02/12/23 Anesthesia Stop Time: 09:25
== END 2023-02-12 11:13 | disposition home or self-care (01) ==
PROVIDERS: PCP Family Medicine; Visit Provider Surgery
PROC: 0FT44ZZ Resection of Gallbladder, Percutaneous Endoscopic Approach (ICD-10-PCS; CPT 47562; principal; 2023-02-12 07:30)
DX: K80.11 Calculus of gallbladder with chronic cholecystitis with obstruction (principal)
CPT/HCPCS: 47562; 00790; 81025; 88304; A9270; J0330; J0665; J0690; J1100; J1170; J2250; J2405; J2704; J3010; J7120

== ENCOUNTER 2023-11-02 11:15 | Emergency (ER) | payer BC, SELFPAY ==
[2023-11-02 11:20] VITALS: BP 105/73; PULSE 66; RESP 16; TEMP 36.9; O2SAT 97
[2023-11-02 11:52] LABS: Appearance Urine Clear (Clear); Bilirubin Urine 2+ (Negative); Blood Urine Negative (Negative); Color Urine Dark yellow (Yellow); Glucose Urine Negative (Negative); Ketones Urine Negative (Negative); Leukocyte Esterase Urine Negative (Negative); Nitrite Urine Negative (Negative); Protein Urine 1+ (Negative); Specific Gravity Urine >= 1.030 (1.000-1.030); pH Urine 5.5 (5.0-8.5)
--- NOTE | 2023-11-02 11:56 | ED_ITS ---
HPI - General Adult General Time Seen by Provider: 11:56 Date Seen: 11/02/23 Chief complaint: Flank Pain Stated complaint: pain on right side, kidney area Time Seen by Provider: 11/02/23 11:25 Source: patient and RN notes reviewed Mode of arrival: ambulatory Limitations: no limitations History of Present Illness HPI narrative: This 33-year-old female is coming in with right flank pain, does radiate into the mid back and right shoulder area. She has a known right kidney stone that has been bothering her for about 3 months now. She has been to [place] [id number] ER 3 times. She is unable to get into Urology until January. Her last imaging was maybe 1 or 2 months ago. She is having ongoing pain that is consistent with her kidney pain. Her appetite is diminished, having difficulty getting oral fluids in due to nausea and pain. She has had no fevers or chills. She has had a gastric bypass, is not allergic to NSAIDs and can take IV Toradol. She has tried 2 Tylenol this morning with no relief. She states her pain is about a 5/6 out of 10 right now. She is still urinating without any difficulty. Related Data Home Medications ?Medication ?Instructions ?Recorded ?Confirmed ascorbic acid (vitamin C) 500 mg 500 mg PO DAILY 02/10/23 02/12/23 chewable tablet (Acerola C) bupropion HCl 150 mg tablet,12 hr 150 mg PO BID 02/10/23 02/12/23 sustained-release (Wellbutrin SR) calcium citrate 315 mg 2 tab PO BID 02/10/23 02/12/23 calcium-vitamin D3 6.25 mcg (250 unit) tablet cholecalciferol (vitamin D3) 125 125 mcg PO DAILY 02/10/23 02/12/23 mcg (5,000 unit) capsule cyanocobalamin (vitamin B-12) 1,000 mcg PO DAILY 02/10/23 02/12/23 1,000 mcg capsule ferrous sulfate 325 mg (65 mg 325 mg PO DAILY 02/10/23 02/12/23 iron) tablet (Iron (ferrous sulfate)) hydroxyzine HCl 25 mg tablet 25 mg PO Q6H PRN anxiety 02/10/23 02/12/23 multivitamin 1 tab PO BID 02/10/23 02/12/23 pantoprazole 40 mg tablet,delayed 40 mg PO DAILY 02/10/23 02/12/23 release (Protonix) Previous Rx's ?Medication ?Instructions ?Recorded oxycodone 5 mg tablet 5 mg PO Q6H PRN pain #10 tabs 02/12/23 sennosides 8.6 mg capsule (senna) 8.6 mg PO DAILY PRN constipation 02/12/23 #90 caps Allergies Allergy/AdvReac Type Severity Reaction Status Date / Time cefaclor [From Ceclor] Allergy Mild Rash Verified 02/12/23 06:26 hydrocodone [From Vicodin] Allergy Mild anxious Verified 02/12/23 06:26 NSAIDS (Non-Steroidal Allergy Verified 02/12/23 06:26 Anti-Inflamma Review of Systems Status of ROS: Reports: 6 or more systems reviewed and unremarkable except as noted in History and below PFSH [facility] Medical History Gall bladder stones ?K80.20 - Calculus of gallbladder without cholecystitis without obstruction (ICD-10) Urolithiasis ?N20.9 - Urinary calculus, unspecified (ICD-10) Gastritis ?K29.70 - Gastritis, unspecified, without bleeding (ICD-10) Flank pain ?R10.9 - Unspecified abdominal pain (ICD-10) Gout ?M10.9 - Gout, unspecified (ICD-10) Postprandial abdominal pain in right upper quadrant ?R10.11 - Right upper quadrant pain (ICD-10) Anxiety ?F41.9 - Anxiety disorder, unspecified (ICD-10) Heart palpitations ?R00.2 - Palpitations (ICD-10) SVT (supraventricular tachycardia) ?I47.1 - Supraventricular tachycardia (ICD-10) Surgical History Hx of tonsillectomy ?Z90.89 - Acquired absence of other organs (ICD-10) Hx of wisdom tooth extraction ?K08.409 - Partial loss of teeth, unspecified cause, unspecified class (ICD- 10) Hx of bariatric surgery ?Z98.84 - Bariatric surgery status (ICD-10) Social History Smoking Status: Former smoker What tobacco products do you use: cigarettes Smoking quit date/years: <= 15 years ago Second hand tobacco smoke exposure: Yes How often do you have a drink containing alcohol: monthly or less How often do you have six or more drinks on one occasion: Less than monthly AUDIT-C Alcohol total score: 2 Non-prescribed substance use: denies use service: No Exam Const: Vital Signs, click to edit/add: Vital Signs - 24 hr 11/02/23 11:20 Temperature 98.4 F Pulse Rate [Pulse Oximeter] 66 Respiratory Rate 16 Blood Pressure [Ri ght Upper Arm] 105/73 Pulse Oximetry 97 Oxygen Delivery Me thod Room Air This 33-year-old female is alert, interactive, no apparent distress. Sclera clear, speaking complete sentences. Lungs are clear, good air entry, no wheezing or crackles. CV regular rate and rhythm, no murmur, normal S1-S2. She has right flank tenderness, abdomen is soft but there is right lateral abdominal tenderness, no rebound or guarding, do not feel any organomegaly. Patient was ambulatory into the ED of her own accord. Note no skin rash on visualized skin. Documenting provider has reviewed patient's vital signs: yes Course Course ED Course: This 33-year-old female has known underlying right kidney stone, also see gallstones listed in her problem list. Last CT documenting gallstones here was in January of 2023. This could potentially be causative etiology for her current pathology. She is afebrile, doubt any infection. Will get full complement of labs. May need to consider gallbladder ultrasound as her symptoms do seem suggestive of potential gallstone pathology. Will start with IV Toradol and some IV fluids. Full complement of labs including urine will be obtained. Reevaluation(s) Time of Reevaluation #1: 13:59 Reevaluation #1: Patient is resting comfortably at this time. Reviewed that her CT is not showing any stone pathology that is obstructive. She has 1 stone that is 4 mm still within the right kidney, reviewed that this is nonobstructing. This stone could pass tomorrow, may never pass or possibly could pass in months to years. We have no way of predicting that. She is status post cholecystectomy in the interim, gallbladder is not the reason for her pain. We discussed other etiologies such as musculoskeletal. At this time there is nothing on her labs or CT that indicate any further emergent evaluation or management. Will have her follow up outpatient if ongoing symptoms. Obviously if she develops fever or concerning changes, we are always here in the ER for re-evaluation. Vital Signs Vital signs: Initial Vital Signs Temperature 98.4 F 11/02/23 11:20 Temperature Source Temporal Artery Scan 11/02/23 11:20 Pulse Rate 66 11/02/23 11:20 Pulse Rhythm Regular 11/02/23 11:20 Respiratory Rate 16 11/02/23 11:20 Blood Pressure 105/73 11/02/23 11:20 Blood Pressure Mean 83 11/02/23 11:20 Blood Pressure Position Sitting 11/02/23 11:20 Pulse Oximetry 97 11/02/23 11:20 Oxygen Delivery Method Room Air 11/02/23 11:20 Vital Signs Temperature 98.4 F 11/02/23 11:20 Pulse Rate 66 11/02/23 11:20 Respiratory Rate 16 11/02/23 11:20 Blood Pressure 105/73 11/02/23 11:20 Pulse Oximetry 97 11/02/23 11:20 Oxygen Delivery Method Room Air 11/02/23 11:20 Temperature 98.4 F 11/02/23 11:20 Pulse Rate 66 11/02/23 11:20 Respiratory Rate 16 11/02/23 11:20 Blood Pressure 105/73 11/02/23 11:20 Pulse Oximetry 97 11/02/23 11:20 Oxygen Delivery Method Room Air 11/02/23 11:20 Medications Administered Medications: Generic Name Dose Route Start Last Admin Trade Name Freq PRN Reason Stop Dose Admin Sodium Chloride 1,000 mls @ 500 mls/hr 11/02/23 12:01 11/02/23 12:10 0.9 % Sodium Chloride 1000 Ml IV 11/02/23 14:00 500 mls/hr .Q2H SONDRA Administration Discontinued Medications Generic Name Dose Route Start Last Admin Trade Name Freq PRN Reason Stop Dose Admin Ketorolac Tromethamine 15 mg 11/02/23 12:01 11/02/23 12:10 Ketorolac 15 Mg/Ml Inj IVP 11/02/23 12:02 15 mg ONCE ONE Administration Medical Decision Making Lab Data Lab results reviewed: Yes I reviewed the patient's lab results Labs: Lab Results 11/02/23 11/02/23 Range/Units 11:32 12:00 WBC 6.40 (4.50-11.00) K/uL RBC 3.40 L (4.00-5.20) m/uL Hgb 11.2 L (12.0-16.0) gm/dL Hct 35.2 (33.0-51.0) % MCV 104 H (80-100) fL MCH 33 (26-34) pg MCHC 32 (32-36) gm/dL RDW Coeff of Colleen 11.9 (11.5-15.5) % Plt Count 272 (140-440) K/uL Neut % (Auto) 63.0 (42.0-72.0) % Lymph % (Auto) 28.8 (20-44) % [place] % (Auto) 7.2 (0.0-11.0) % Eos % (Auto) 0.5 (0.0-7.0) % Baso % (Auto) 0.2 (0.0-3.0) % Neut # (Auto) 4.04 (1.7-7.0) K/uL Lymph # (Auto) 1.84 (0.90-2.90) K/uL [place] # (Auto) 0.50 (0.00-0.90) K/UL Eos # (Auto) 0.03 (0.00-0.50) K/uL Baso # (Auto) 0.01 (0.00-0.30) K/uL Abs Immat Gran (auto) 0.02 (0.00-0.30) K/uL Imm/Tot Granulo (auto) 0.3 % Sodium 137 (135-149) mmol/L Potassium 3.5 L (3.6-5.1) mmol/L Chloride 104 (96-114) mmol/L Carbon Dioxide 27 (20-32) mmol/L Anion Gap 6 L (7-15) mEq/L BUN 16 (5-24) mg/dL Creatinine 0.8 (0.5-1.5) mg/dL Estimated GFR 98 ml/min Glucose 87 (60-115) mg/dL Lactate 0.8 (0.5-1.9) mmol/L Calcium 8.6 (8.4-10.6) mg/dL Urine Color Dark yellow (Yellow) Urine Appearance Clear (Clear) Urine pH 5.5 (5.0-8.5) Ur Specific [place] >= 1.030 (1.000-1.030) Urine Protein 1+ A (Negative) Urine Glucose (UA) Negative (Negative) Urine Ketones Negative (Negative) Urine Blood Negative (Negative) Urine Nitrite Negative (Negative) Urine Bilirubin 2+ A (Negative) Urine Urobilinogen 1.0 (0.2-1.0) Ur Leukocyte Esterase Negative (Negative) Urine RBC 0-2 (0-2) Urine WBC 0-2 (0-5) Ur Squamous Epith Cells Moderate A (None-Few) Urine Bacteria Moderate A (None) Urine HCG, Qual Negative (Negative) Imaging Data CT scan - abdomen: Attestation: I have reviewed the pertinent imaging results. Radiologist's impression: Patient: KENNETH HOFFMANN Facility:?[facility] Patient ID:?[id number] Site Patient ID:?[id number]. Site :?[id number] Study:?CT-Abdomen/Pelvis W/O-11/02/2023 12:26:08 PM Ordering Physician:Ericka Montero Final Report: INDICATION: Flank pain. Evaluate for kidney stone. TECHNIQUE: Multiplanar CT examination of the abdomen and pelvis was performed without the use of intravenous contrast, renal stone protocol. COMPARISON: None. FINDINGS: Limited evaluation of the soft tissue organs without the use of intravenous contrast and due to the paucity of intra-abdominal fat. Lower chest: No focal consolidation. Normal heart size. No pleural effusions or pneumothorax. Linear bandlike opacifications of the lungs bilaterally, likely subsegmental atelectasis. Liver: Unremarkable. Gallbladder: Cholecystectomy. Biliary: Unremarkable. Pancreas: Within normal limits. Spleen: Unremarkable. Adrenal glands: Unremarkable. Renal/ureters/bladder: Normal in size. No obstructive uropathy. No hydronephrosis or obstructive urinary calculi. There is a small 4 mm nonobstructive calculus within the collecting system of the right kidney. Limited evaluation for renal masses without the use of intravenous contrast. The ureters appear unremarkable. The bladder is within normal limits. Pelvis: Unremarkable uterus. No adnexal masses. Gastrointestinal: Postsurgical changes from prior Vladimir-en-Y gastric bypass surgery. No bowel wall thickening or bowel obstruction. Normal appendix. No significant colonic diverticulosis. Mild colonic stool burden. Fat attenuating lesion arising from the wall of the descending colon measuring 2.2 cm (2:54), possibly a gastrointestinal tract lipoma, poorly evaluated on this examination. Vasculature: No aortic aneurysm. No significant atherosclerotic calcifications. Lymph nodes: No pathologic lymphadenopathy by size criteria. Peritoneum: No free fluid or pneumoperitoneum. No drainable fluid collections. Abdominal wall/soft tissues: Unremarkable. Bones: No acute osseous abnormalities. IMPRESSION: 1. 4 mm nonobstructive urinary calculus within the collecting system of the right kidney. No obstructive calculus or hydronephrosis. 2. 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 Please note that all CT scans at this facility use dose modulation, iterative reconstruction, and/or weight-based dosing when appropriate to reduce radiation dose to as low as reasonably achievable. Dictated by Aguilar Ovalle MD @ 11/02/2023 12:55:07 PM (Electronic Signature) Discharge Plan Discharge Clinical Impression: Right sided abdominal pain Patient Disposition: Home, Self-Care Condition: Stable Instructions: Abdominal Pain (ED) Additional Instructions: Need to schedule a clinic follow-up with your primary provider within the next week for re-evaluation. Can continue with Tylenol per bottle directions for symptom control. If your pain is worsening, develops fever with that or other concerning symptoms, do need to be re-evaluated in the interim. There is no evidence of any obstructive kidney stone at this time. You do have a 4 mm stone within the right kidney but it is not obstructing, do not know if or when this will pass into the system. This is not likely to be giving you your pain. Activity Level: Activity as Tolerated Prescriptions: No Action ascorbic acid (vitamin C) [Acerola C] 500 mg tablet,chewable 500 mg PO DAILY bupropion HCl [Wellbutrin SR] 150 mg tablet sustained-release 12 hr 150 mg PO BID calcium citrate-vitamin D3 315 mg-6.25 mcg (250 unit) tablet 2 tab PO BID cholecalciferol (vitamin D3) 125 mcg (5,000 unit) capsule 125 mcg PO DAILY cyanocobalamin (vitamin B-12) 1,000 mcg capsule 1,000 mcg PO DAILY ferrous sulfate [Iron (ferrous sulfate)] 325 mg (65 mg iron) tablet 325 mg PO DAILY hydroxyzine HCl 25 mg tablet 25 mg PO Q6H PRN (Reason: anxiety) multivitamin Tablet 1 tab PO BID pantoprazole [Protonix] 40 mg tablet,delayed release (DR/EC) 40 mg PO DAILY oxycodone 5 mg tablet 5 mg PO Q6H PRN (Reason: pain) Qty: 10 0RF senna 8.6 mg capsule 8.6 mg PO DAILY PRN (Reason: constipation) Qty: 90 0RF Follow Up/Referrals: Stephon Arellano MD [Primary Care Provider] - Stand Alone Forms: [facility] Info Instructions
--- NOTE | 2023-11-02 12:01 | CRLHL7_ITS ---
For Patients: As a result of the 21st Century Cures Act, medical imaging exams and procedure reports are released immediately into your electronic medical record. You may view this report before your referring provider. If you have questions, please contact your health care provider. INDICATION: Flank pain. Evaluate for kidney stone. TECHNIQUE: Multiplanar CT examination of the abdomen and pelvis was performed without the use of intravenous contrast, renal stone protocol. COMPARISON: None. FINDINGS: Limited evaluation of the soft tissue organs without the use of intravenous contrast and due to the paucity of intra-abdominal fat. Lower chest: No focal consolidation. Normal heart size. No pleural effusions or pneumothorax. Linear bandlike opacifications of the lungs bilaterally, likely subsegmental atelectasis. Liver: Unremarkable. Gallbladder: Cholecystectomy. Biliary: Unremarkable. Pancreas: Within normal limits. Spleen: Unremarkable. Adrenal glands: Unremarkable. Renal/ureters/bladder: Normal in size. No obstructive uropathy. No hydronephrosis or obstructive urinary calculi. There is a small 4 mm nonobstructive calculus within the collecting system of the right kidney. Limited evaluation for renal masses without the use of intravenous contrast. The ureters appear unremarkable. The bladder is within normal limits. Pelvis: Unremarkable uterus. No adnexal masses. Gastrointestinal: Postsurgical changes from prior Vladimir-en-Y gastric bypass surgery. No bowel wall thickening or bowel obstruction. Normal appendix. No significant colonic diverticulosis. Mild colonic stool burden. Fat attenuating lesion arising from the wall of the descending colon measuring 2.2 cm (2:54), possibly a gastrointestinal tract lipoma, poorly evaluated on this examination. Vasculature: No aortic aneurysm. No significant atherosclerotic calcifications. Lymph nodes: No pathologic lymphadenopathy by size criteria. Peritoneum: No free fluid or pneumoperitoneum. No drainable fluid collections. Abdominal wall/soft tissues: Unremarkable. Bones: No acute osseous abnormalities. IMPRESSION: 1. 4 mm nonobstructive urinary calculus within the collecting system of the right kidney. No obstructive calculus or hydronephrosis. 2. 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 Please note that all CT scans at this facility use dose modulation, iterative reconstruction, and/or weight-based dosing when appropriate to reduce radiation dose to as low as reasonably achievable. Dictated by Aguilar Ovalle MD @ 11/02/2023 12:55:07 PM (Electronically Signed)
[2023-11-02 12:06] LABS: RBC Urine 0-2 (0-2)
[2023-11-02 12:07] LABS: Bacteria Urine Moderate; Squamous Epithelial Cell Urine Moderate (None-Few); Ur HCG Qualitative* Negative (Negative); WBC Urine 0-2 (0-5)
[2023-11-02 12:10] LABS: Lactate* 0.8 mmol/L (0.5-1.9)
[2023-11-02] MEDS: KETOROLAC 15 MG/ML inj IVP (12:10)
[2023-11-02] MEDS: 0.9 % SODIUM CHLORIDE 1000 ml 1,000 ML 500 ML IV (12:10)
[2023-11-02 12:14] LABS: Basophils Absolute Auto 0.01 K/uL (0.00-0.30); Basophils Percent Auto 0.2 % (0.0-3.0); Eosinophils Absolute Auto 0.03 K/uL (0.00-0.50); Eosinophils Percent Auto 0.5 % (0.0-7.0); Hematocrit 35.2 % (33.0-51.0); Hemoglobin* 11.2 gm/dL (12.0-16.0); Immature Granulocytes Abs Auto 0.02 K/uL (0.00-0.30); Immature Granulocytes Pct Auto 0.3 %; Lymphocytes Absolute Auto 1.84 K/uL (0.90-2.90); Lymphocytes Percent Auto 28.8 % (20-44); Mean Corpuscular HGB Conc 32 gm/dL (32-36); Mean Corpuscular Hemoglobin 33 pg (26-34); Mean Corpuscular Volume 104 fL (80-100); Monocytes Percent Auto 7.2 % (0.0-11.0); Neutrophils Absolute Auto 4.04 K/uL (1.7-7.0); Platelet Count* 272 K/uL (140-440); RDW Coefficient of Variation % 11.9 % (11.5-15.5)
[2023-11-02 12:23] LABS: Slide Review Reflex No
[2023-11-02 12:31] LABS: Chloride* 104 mmol/L (96-114); Potassium* 3.5 mmol/L (3.6-5.1); Sodium* 137 mmol/L (135-149)
[2023-11-02 12:34] LABS: Anion Gap 6 mEq/L (7-15); Blood Urea Nitrogen* 16 mg/dL (5-24); Carbon Dioxide* 27 mmol/L (20-32); Creatinine* 0.8 mg/dL (0.5-1.5); Estimated Glomerular Filt Rate 98 ml/min; Glucose* 87 mg/dL (60-115)
[2023-11-02 12:35] LABS: Calcium* 8.6 mg/dL (8.4-10.6)
[2023-11-02 14:06] VITALS: BP 104/71; PULSE 64; RESP 18; O2SAT 96
== END 2023-11-02 14:13 | disposition home or self-care (01) ==
PROVIDERS: Emergency Provider Family Medicine; PCP Family Medicine
DX: R10.11 Right upper quadrant pain (principal)
CPT/HCPCS: 36415; 74176; 80048; 81001; 81025; 83605; 85025; 87086; 99283; 99284; J1885; J7030

== ENCOUNTER 2023-12-30 15:15 | Outpatient (RCR) | payer BC, SELFPAY | END 2024-04-07 09:27 | disposition home or self-care (01) | PROVIDERS: PCP Family Medicine; Visit Provider Family Medicine | DX: M54.50 Low back pain, unspecified (principal); Z51.89 Encounter for other specified aftercare | CPT/HCPCS: 97110; 97161 ==